=== PATIENT | male | born 1960 | race Caucasian/White ===

== ENCOUNTER 2017-06-03 20:09 | Inpatient (IN) | payer OTHER ==
[2017-06-03 20:29] VITALS: BMI 26.9
[2017-06-03] MEDS ORDERED: SODIUM CHLORIDE 1,000 ML IV STA (20:31)
[2017-06-03] MEDS ORDERED: ACETAMINOPHEN 1000 MG/100 ML VIAL (NON FORMULARY) IVPB ONE (20:38)
[2017-06-03] MEDS ORDERED: ACETAMINOPHEN INJECTION 100 ML IVPB ONE (20:51)
[2017-06-03] MEDS ORDERED: SODIUM CHLORIDE 0.9% 1000 ML INFUS.BAG IV ONE (20:56)
[2017-06-03 21:06] LABS: BASO % 0.1 % (0-2.0); EOS % 1.2 % (0-4.5); HEMATOCRIT 30.3 % (35.4-49); HEMOGLOBIN 11.1 GM/dL (11.7-16.9); LYMPH % 9.5 % (8-40); MCH 33.8 pg (25.7-33.7); MCHC 36.7 g/dl (32.0-35.9); MEAN CELL VOLUME 92.3 fl (80-96); MEAN PLT VOLUME 7.7 fl (7.5-11.1); MONO % 18.9 % (3.8-10.2); NEUT % 70.3 % (42.8-82.8); PLATELET COUNT 173 K/MM3 (134-434); RBC 3.28 M/mm3 (4.00-5.60); RDW 12.5 % (11.9-15.9); WHITE BLOOD COUNT 2.6 K/mm3 (4.0-10.0)
--- NOTE | 2017-06-03 21:06 | PDOC ---
Attending Attestation - Resident Resident Name: Ramsey Pruett - ED Attending Attestation I have performed the following: I have examined & evaluated the patient, The case was reviewed & discussed with the resident, I agree w/resident's findings & plan, Exceptions are as noted - HPI HPI: 06/03/17 23:30 Mr. 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 Pt s/p 5 rounds of chemo and also receiving XRT Pt tolerates chemo well, has had oral lesions for which he is treated with Roxicodone, Steroid swish and spit The patient states that he received his last dose of chemo on Monday and began developing fevers on which were intermittent and self resolving. He was seen by oncologist today, noted to have a low grade fever of 100.1 Given IV hydration and fever resolved before discharge He noted a fever prior to arrival in the ER Pt has had a cough but this has not changed in any way from prior Pt had had no nausea, vomiting or diarrhea No cellulitis Pt has sores in his mouth. - Physicial Exam PE: 06/03/17 23:54 GENERAL: The patient is in no acute distress. HEAD: Normal EYES: PERRLA, EOMI, sclera anicteric, conjunctiva clear. ENT: Ears normal, oral ulcerous lesions, s/p tongue resection NECK: Normal range of motion, supple LUNGS: Breath sounds equal, clear to auscultation bilaterally. No wheezes, and no crackles. HEART:Regular rate and rhythm, normal S1 and S2 without murmur, rub or gallop. ABDOMEN: Soft, nontender, normoactive bowel sounds. No guarding, no rebound. No masses palpable. EXTREMITIES: Normal range of motion . NEUROLOGICAL: Cranial nerves II through XII grossly intact. Normal speech. No focal neurological deficits. MUSCULOSKELETAL: Back non-tender to palpation, no CVA tenderness SKIN: Warm, Dry, normal turgor, no rashes 06/05/17 20:14 - Medical Decision Making 06/03/17 23:25 Laboratory Tests 07/02/15 07/02/15 07/02/15 02:50 03:20 03:20 WBC 13.3 H Hgb 14.1 Hct 42.0 Plt Count 228 Neutrophils % 72.8 PT with INR INR PTT (Actin FS) VBG pH POC VBG pCO2 POC VBG pO2 Mixed VBG HCO3 Sodium Potassium Chloride Carbon Dioxide Anion Gap BUN 12 Creatinine 0.8 Lactic Acid Troponin I Albumin Urine Ketones Negative Urine Blood Negative Urine Nitrite Negative Ur Leukocyte Esterase Negative Urine RBC <1 Urine WBC 1 06/03/17 06/03/17 06/03/17 20:40 20:40 20:40 WBC 2.6 L D Hgb 11.1 L D Hct 30.3 L D Plt Count 173 D Neutrophils % 70.3 PT with INR 13.10 H INR 1.16 H PTT (Actin FS) 24.4 L VBG pH POC VBG pCO2 POC VBG pO2 Mixed VBG HCO3 Sodium Potassium Chloride Carbon Dioxide Anion Gap BUN Cancelled Creatinine Cancelled Lactic Acid Troponin I Albumin Urine Ketones Urine Blood Urine Nitrite Ur Leukocyte Esterase Urine RBC Urine WBC 06/03/17 06/03/17 06/03/17 20:40 20:46 21:35 WBC Hgb Hct Plt Count Neutrophils % PT with INR INR PTT (Actin FS) VBG pH 7.46 H POC VBG pCO2 36.7 L POC VBG pO2 68.9 H Mixed VBG HCO3 26.0 H Sodium 134 L Potassium 4.4 Chloride 103 Carbon Dioxide 26 Anion Gap 5 L BUN 23 H D Creatinine 1.0 D Lactic Acid 2.1 H Troponin I < 0.02 Albumin 2.6 L D Urine Ketones Urine Blood Urine Nitrite Ur Leukocyte Esterase Urine RBC Urine WBC 06/04/17 00:01 Pt presents to the ER with Oral lesions, fevers, tachycardia/hypotension (which has improved with IV hydration) Pt CXR demonstrates no evidence of infiltrate No diarrhea or abdominal pain to suggest colitis Pt has severe oral lesions ? source of fever?? Will: continue IV hydration Morphine for pain (no roxicodone available) Empiric vanc and unasyn Will admit to [facility] This was reviewed with patient Pt would rather stay here Clinical Impression: fever s/p chemo and radiation, initial presentation ?? Mucositis/Esophagitis, initial presentation Discharge Disposition - Diagnosis Sepsis Qualifiers: Sepsis type: sepsis due to unspecified organism Qualified Code(s): A41.9 - Sepsis, unspecified organism - Discharge Dispostion Condition at time of disposition: Guarded - Referrals - Patient Instructions - Post Discharge Activity Critical Care Time/MDM Note Total Critical Care Time: 35 Critical Care Statement: The care of this patient involved high complexity decision making to prevent further life threatening deterioration of the patient 's condition and/or to evaluate & treat vital organ system(s) failure or risk of failure.
--- NOTE | 2017-06-03 21:09 | PDOC ---
History of Present Illness - General Chief Complaint: SIRS, Suspected/Possible Stated Complaint: FEVER Time Seen by Provider: 06/03/17 20:29 History Source: Patient Exam Limitations: No Limitations - History of Present Illness Initial Comments: 06/03/17 21:09 The patient is a 56M with a PMH of lung ca (s/p resection w/ LN and chemo - last chemo Monday) who presents to the ER with intermittent fever. The patient states that he received his last dose of chemo on Monday and began developing fevers on which were intermittent and self resolving. Today he had a low grade fever of 100.1 then it continued to increase throughout the day and was told by his heme/onc physicians at [facility] to get evaluated. The patient has no complaints other than sores in his mouth. He denies CP, SOB, chills, nausea, vomiting, rashes, diarrhea, constipation. Past History - Past Medical History Allergies/Adverse Reactions: Allergies Allergy/AdvReac Type Severity Reaction Status Date / Time No Known Allergies Allergy Verified 06/03/17 20:27 Home Medications: Ambulatory Orders Docusate Sodium [Colace] 100 mg PO DAILY 06/03/17 FENTANYL 25mcg PATCH [DURAGESIC 25mcg PATCH -] 1 patch TD DAILY 06/03/17 Gabapentin 300 mg PO TID 06/03/17 Guaifenesin [Mucinex] 600 mg PO DAILY 06/03/17 Oxycodone HCl 20 mg PO PRN 06/03/17 Ranitidine HCl [Zantac] 300 mg PO DAILY 06/03/17 Sennosides [Senna] 8.6 mg PO DAILY 06/03/17 COPD: No - Immunization History Td Vaccination: Yes TDAP Vaccination: No - Suicide/Smoking/Psychosocial Hx Smoking Status: No Smoking History: Unknown if ever smoked Have you smoked in the past 12 months: No Number of Cigarettes Smoked Daily: 0 Information on smoking cessation initiated: No Hx Alcohol Use: No Drug/Substance Use Hx: No Review of Systems - Review of Systems Able to Perform ROS?: Yes Comments:: 06/03/17 21:18 GENERAL/CONSTITUTIONAL: Positive for fever. No chills. No weakness. HEAD, EYES, EARS, NOSE AND THROAT: Positive for sores in mouth and on tongue. No change in vision. No ear pain or discharge. No sore throat. CARDIOVASCULAR: No chest pain, palpitations, or lightheadedness. RESPIRATORY: No cough, wheezing, shortness of breath, or hemoptysis. GASTROINTESTINAL: No nausea, vomiting, diarrhea, constipation, or abdominal pain. GENITOURINARY: No dysuria, frequency, hematuria, or change in urination. MUSCULOSKELETAL: No joint or muscle swelling or pain. No neck or back pain. SKIN: No rash or lesions. NEUROLOGIC: No headache, numbness, tingling, weakness, loss of consciousness, or change in strength/sensation. ENDOCRINE: No increased thirst. No abnormal weight change. HEMATOLOGIC/LYMPHATIC: No anemia, easy bleeding, or history of blood clots. ALLERGIC/IMMUNOLOGIC: No hives or skin allergy. Is the patient limited Syriac proficient: No *Physical Exam - Vital Signs Last Vital Signs Temp Pulse Resp BP Pulse Ox 102.8 F H 143 H 18 93/57 100 06/03/17 20:24 06/03/17 20:24 06/03/17 20:24 06/03/17 20:24 06/03/17 20:24 - Physical Exam Comments: 06/03/17 21:19 GENERAL: Well developed, well nourished. Awake and alert. No acute distress. Warm to touch. HEENT: Normocephalic, atraumatic. Hearing grossly normal. Moist mucous membranes. PERRLA, EOMI. No conjunctival pallor. Sclera are non-icteric. Multiple sore present throughout oral mucosa, erythematous. NECK: Supple. Full ROM. No JVD. CARDIOVASCULAR: Tachycardic with regular rhythm. No murmurs, rubs, or gallops. PULMONARY: No evidence of respiratory distress. Lungs clear to auscultation bilaterally. No wheezing, rales or rhonchi. ABDOMINAL: Soft. Non-tender. Non-distended. No rebound or guarding. No organomegaly. Normoactive bowel sounds. GENITOURINARY: No CVA tenderness bilaterally. MUSCULOSKELETAL: Normal range of motion at all joints. No bony deformities or tenderness. EXTREMITIES: No cyanosis. No clubbing. No edema. No calf tenderness. SKIN: Warm and dry. Normal capillary refill. No rashes. No jaundice. NEUROLOGICAL: Alert, awake, appropriate. Cranial nerves 2-12 intact. Normal speech. Gait is normal without ataxia. PSYCHIATRIC: Cooperative. Good eye contact. Appropriate mood and affect. Heart Score/ECG Review #1 General ECG Interpretation: Sinus Rhythm, Normal Rate, Normal Intervals, No acute ischemic changes Compared to previous ECG there are: No significant change 06/03/17 21:21 Sinus tachycardia Vent 134 ND 116 QRS 72 QTc 406 No ROBERT or depressions No evidence of acute ischemia ED Treatment Course - LABORATORY CBC & Chemistry Diagram: 06/03/17 20:40 06/03/17 21:35 - RADIOLOGY Radiology Studies Ordered: Category Date Time Status CHEST X-RAY PORTABLE* [RAD] Stat Radiology 06/03/17 20:31 Ordered Medical Decision Making - Medical Decision Making 06/03/17 21:24 The patient is a 56M with a PMH of tongue ca who presents with intermittent fevers after calling his heme/onc. Incoming vitals notable for tachycardia to 130's, fever, and borderline hypotensive. Sepsis protocol is being followed with resuscitative fluids being given. Pt looks comfortable but will be monitored closely. IV tylenol given for fever control. 06/03/17 22:06 WBC 2.6, neut % is 70.6. No bands. The patient is not neutropenic. Will call Dr. Palafox, pt's oncologist, to discuss previous blood counts. 06/03/17 22:24 I have spoken with [address] Olivares at [facility] who states that the pt's previous WBC 5.8 w/neut 4.7 on May 29 and to give abx only if we find a source of infection. Will continue to resuscitate and monitor closely. 06/03/17 22:42 ER # [id number] for transfer to [facility] if necessary. Pt's oncologist Dr. Roderick Palafox [phone] Pt's rad/onc Dr. Chiquita Hagen [phone] 06/04/17 00:19 Hospitalist paged for admission. 06/04/17 00:[address] Sim for admission under Dr. Dwyer. *DC/Admit/Observation/Transfer Diagnosis at time of Disposition: Sepsis Qualifiers: Sepsis type: sepsis due to unspecified organism Qualified Code(s): A41.9 - Sepsis, unspecified organism - Discharge Dispostion Condition at time of disposition: Guarded Admit: Yes - Referrals - Patient Instructions - Post Discharge Activity
[2017-06-03 21:10] LABS: VENOUS PC02 36.7 mmHg (38-52); VENOUS PH 7.46 (7.32-7.42); VENOUS PO2 68.9 mmHg (28-48)
[2017-06-03 21:22] LABS: INR 1.16 (0.82-1.09); PROTHROMBIN TIME (PATIENT) 13.1 SEC (9.98-11.88)
[2017-06-03 21:25] LABS: ACTIVATED PTT 24.4 SECONDS (26.9-34.4)
[2017-06-03] MEDS ORDERED: oxyCODONE HCL 5 MG TABLET PO ONE (22:25)
[2017-06-03 22:28] LABS: ALBUMIN 2.6 g/dl (3.4-5.0); ANION GAP 5 (8-16); BILIRUBIN,TOTAL 0.3 mg/dL (0.2-1.0); BLOOD UREA NITROGEN 23 mg/dL (7-18); CALCIUM 7.4 mg/dL (8.5-10.1); CHLORIDE 103 mmol/L (98-107); CO2 26 mmol/L (21-32); GLUCOSE,RANDOM 199 mg/dL (74-106); POTASSIUM 4.4 mmol/L (3.5-5.1); SGOT/AST 7 U/L (15-37); SGPT/ALT 15 U/L (12-78); SODIUM 134 mmol/L (136-145)
[2017-06-03 22:31] LABS: ALK PHOS 62 U/L (45-117)
[2017-06-03] MEDS ORDERED: morphine SULFATE 4 MG/ML VIAL ONE (22:45)
[2017-06-03] MEDS ORDERED: morphine CARPU-JECT 4 MG/1 ML DISP.SYRIN IVPUSH ONE (22:47)
[2017-06-04] MEDS ORDERED: AMPICILLIN NA/SULBACTAM NA 3 GM in SODIUM CHLORIDE 100 ML IVPB ONE (00:01)
[2017-06-04] MEDS ORDERED: VANCOMYCIN 1 GRAM (PRE-DOCKED) 1,000 MG/250 ML BAG IVPB ONE (00:10)
[2017-06-04] MEDS ORDERED: VANCOMYCIN 1,000 MG in DEXTROSE 5%-WATER - 250 ML IVPB SCH (00:15)
--- NOTE | 2017-06-04 00:24 | PN ---
Teaching Attending Note Name of Resident: Nell Sim ATTENDING PHYSICIAN STATEMENT I saw and evaluated the patient. I reviewed the resident's note and discussed the case with the resident. I agree with the resident's findings and plan as documented. SUBJECTIVE: 56 y/o Male with h/o tongue cancer s/p rsection with chemotherapy with cisplatin 5th round and radiation therapy. Presented to Ed complaining of fever and severe mouth pain. PAtient takes oxycodone at home without relief. OBJECTIVE: Gen: A&Ox3 in severe distress HEENT: Drooling, tongue swollen with thrush. Cervical lymphadenopathy on left and neck erythematous CVS: RRR, S1, S2 Lungs: CTA Abd: Soft, NT, BS+ Ext: Nl pulses CBCD WBC 2.6 K/mm3 (4.0-10.0) L D 06/03/17 20:40 RBC 3.28 M/mm3 (4.00-5.60) L D 06/03/17 20:40 Hgb 11.1 GM/dL (11.7-16.9) L D 06/03/17 20:40 Hct 30.3 % (35.4-49) L D 06/03/17 20:40 MCV 92.3 fl (80-96) 06/03/17 20:40 MCHC 36.7 g/dl (32.0-35.9) H 06/03/17 20:40 RDW 12.5 % (11.9-15.9) 06/03/17 20:40 Plt Count 173 K/MM3 (134-434) D 06/03/17 20:40 MPV 7.7 fl (7.5-11.1) D 06/03/17 20:40 CMP Sodium 134 mmol/L (136-145) L 06/03/17 21:35 Potassium 4.4 mmol/L (3.5-5.1) 06/03/17 21:35 Chloride 103 mmol/L (98-107) 06/03/17 21:35 Carbon Dioxide 26 mmol/L (21-32) 06/03/17 21:35 Anion Gap 5 (8-16) L 06/03/17 21:35 BUN 23 mg/dL (7-18) H D 06/03/17 21:35 Creatinine 1.0 mg/dL (0.7-1.3) D 06/03/17 21:35 Creat Clearance w eGFR > 60 (>60) 06/03/17 21:35 Random Glucose 199 mg/dL (74-106) H D 06/03/17 21:35 Calcium 7.4 mg/dL (8.5-10.1) L 06/03/17 21:35 Total Bilirubin 0.3 mg/dL (0.2-1.0) D 06/03/17 21:35 AST 7 U/L (15-37) L D 06/03/17 21:35 ALT 15 U/L (12-78) D 06/03/17 21:35 Alkaline Phosphatase 62 U/L (45-117) 06/03/17 21:35 Total Protein 6.0 g/dl (6.4-8.2) L 06/03/17 21:35 Albumin 2.6 g/dl (3.4-5.0) L D 06/03/17 21:35 CARDIAC ENZYMES Creatine Kinase 50 IU/L (39-308) 06/03/17 21:35 Troponin I < 0.02 ng/ml (0.00-0.05) 06/03/17 21:35 ASSESSMENT AND PLAN: Admitted for Sepsis without neutropenia although patient has low white count. Empiric abx started and IVF. Tylenol PRN for fever. Fentanyl 100mcg IVP prn for severe pain and continue fentanyl patch 50mcg q72h. Continue gabapentin and home medications. Oncology consult Patients last chemo treatment planned for [facility] at [facility]
--- NOTE | 2017-06-04 00:32 | HP ---
CHIEF COMPLAINT: "I have a fever" oncologist Dr. Roderick Palafox [phone] rad/onc Dr. Chiquita Hagen [phone] 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 He began developing low grade fevers on . His heme/onc physicians at [facility] recommended ER eval. He complain of oral sores and thrush, poor pain cntrol and as a result poor po intake. Last labs show WBC 5.8, neut 4.7 on May 29. He has not had neuropenia, fevers, infection and has not used abx during his CA treatment before. He denies chills, malaise, abd pain, n/v, diarrhea, dysuria, constipation hematuria, melena, hemaochezia, cough, sob, sick contacts. On admission patients cbc shows WBC 2.6, neut 70.6% No bands, not neutropenic. Patints oncologist Dr. Palafox recommended ppx abx reatment. ER course was notable for: (1)labs (2)ekg: sinus tach, cxr clear (3)sepsis protocol, IVF 30cc /kg, vanco +unasyn, pain control Recent Travel: [place] PAST MEDICAL HISTORY: as above, diverticulitis PAST SURGICAL HISTORY: as above Social History: lives with family Smoking: denies Alcohol: quit, past moderate use Drugs: denies Family History: brother lymphoma at 25 yo Allergies No Known Allergies Allergy (Verified 06/03/17 20:27) HOME MEDICATIONS: Home Medications Medication Instructions Recorded Docusate Sodium [Colace] 100 mg PO DAILY 06/03/17 FENTANYL 25mcg PATCH [DURAGESIC 1 patch TD DAILY 06/03/17 25mcg PATCH -] Gabapentin 300 mg PO TID 06/03/17 Guaifenesin [Mucinex] 600 mg PO DAILY 06/03/17 Oxycodone HCl 20 mg PO PRN 06/03/17 Ranitidine HCl [Zantac] 300 mg PO DAILY 06/03/17 Sennosides [Senna] 8.6 mg PO DAILY 06/03/17 REVIEW OF SYSTEMS CONSTITUTIONAL: Absent: chills, malaise HEENT: Absent: rhinorrhea, nasal congestion, ear pain, eye pain, visual changes CARDIOVASCULAR: Absent: chest pain, syncope, palpitations, irregular heart rate, lightheadedness , peripheral edema RESPIRATORY: Absent: cough, shortness of breath, dyspnea with exertion, orthopnea GASTROINTESTINAL: Absent: abdominal pain, abdominal distension, nausea, vomiting, diarrhea, constipation, melena, hematochezia GENITOURINARY: Absent: dysuria, hematuria, flank pain MUSCULOSKELETAL: Absent: back pain, neck pain SKIN: Absent: rash, itching, pallor HEMATOLOGIC/IMMUNOLOGIC: Absent: easy bleeding, easy bruising, frequent infections ENDOCRINE: Absent: heat intolerance, cold intolerance NEUROLOGIC: Absent: headache, focal weakness or paresthesias PSYCHIATRIC: Absent: anxiety, depression PHYSICAL EXAMINATION Vital Signs - 24 hr 06/03/17 06/03/17 20:24 22:10 Temperature 102.8 F H 99.4 F Pulse Rate 143 H Pulse Rate [ 110 H Left Radial] Respiratory 18 19 Rate Blood Pressure 93/57 Blood Pressure 102/67 [Right Arm] O2 Sat by Pulse 100 Oximetry (%) GENERAL: Awake, alert, and fully oriented, in no acute distress. HEAD: Normal with no signs of trauma. EYES: Pupils equal, round and reactive to light, extraocular movements intact, sclera anicteric, conjunctiva clear. No lid lag. EARS, NOSE, THROAT: tongue and oropharyn with multiple ulcersm white film, erythematous, tender, drooling. Moist mucous membranes. NECK: supple without lymphadenopathy, JVD, or masses. erythematous from radiation, some posterior scabs LUNGS: Breath sounds equal, clear to auscultation bilaterally. HEART: Regular rate and rhythm, normal S1 and S2 ABDOMEN: Soft, nontender, not distended, normoactive bowel sounds, no guarding, no rebound, no masses. MUSCULOSKELETAL: No CVA tenderness. UPPER EXTREMITIES: 2+ pulses, warm, well-perfused. No cyanosis. No clubbing. No peripheral edema. LOWER EXTREMITIES: 2+ pulses, warm, well-perfused. No calf tenderness. No peripheral edema. NEUROLOGICAL: Cranial nerves II-XII grossly intact. slurred speech. PSYCHIATRIC: Cooperative. Good eye contact. Appropriate mood and affect. Laboratory Results - last 24 hr 06/03/17 06/03/17 06/03/17 20:40 20:40 20:40 WBC 2.6 L D RBC 3.28 L D Hgb 11.1 L D Hct 30.3 L D MCV 92.3 MCH 33.8 H MCHC 36.7 H RDW 12.5 Plt Count 173 D MPV 7.7 D Neutrophils % 70.3 Lymphocytes % 9.5 Monocytes % 18.9 H Eosinophils % 1.2 D Basophils % 0.1 PT with INR 13.10 H INR 1.16 H PTT (Actin FS) 24.4 L VBG pH POC VBG pCO2 POC VBG pO2 Mixed VBG HCO3 Sodium Cancelled Potassium Cancelled Chloride Cancelled Carbon Dioxide Cancelled Anion Gap Cancelled BUN Cancelled Creatinine Cancelled Creat Clearance w eGFR Cancelled Random Glucose Cancelled Lactic Acid Calcium Cancelled Total Bilirubin Cancelled AST Cancelled ALT Cancelled Alkaline Phosphatase Cancelled Creatine Kinase Troponin I Total Protein Cancelled Albumin Cancelled 06/03/17 06/03/17 06/03/17 20:40 20:40 20:46 WBC RBC Hgb Hct MCV MCH MCHC RDW Plt Count MPV Neutrophils % Lymphocytes % Monocytes % Eosinophils % Basophils % PT with INR INR PTT (Actin FS) VBG pH 7.46 H POC VBG pCO2 36.7 L POC VBG pO2 68.9 H Mixed VBG HCO3 26.0 H Sodium Potassium Chloride Carbon Dioxide Anion Gap BUN Creatinine Creat Clearance w eGFR Random Glucose Lactic Acid 2.1 H Calcium Total Bilirubin AST ALT Alkaline Phosphatase Creatine Kinase Troponin I Cancelled Total Protein Albumin 06/03/17 06/03/17 21:35 23:00 WBC RBC Hgb Hct MCV MCH MCHC RDW Plt Count MPV Neutrophils % Lymphocytes % Monocytes % Eosinophils % Basophils % PT with INR INR PTT (Actin FS) VBG pH POC VBG pCO2 POC VBG pO2 Mixed VBG HCO3 Sodium 134 L Potassium 4.4 Chloride 103 Carbon Dioxide 26 Anion Gap 5 L BUN 23 H D Creatinine 1.0 D Creat Clearance w eGFR > 60 Random Glucose 199 H D Lactic Acid 1.2 Calcium 7.4 L Total Bilirubin 0.3 D AST 7 L D ALT 15 D Alkaline Phosphatase 62 Creatine Kinase 50 Troponin I < 0.02 Total Protein 6.0 L Albumin 2.6 L D ASSESSMENT/PLAN: This is a 56 yo M with 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 Sepsis in chemotherapy patient -not neutropenic but wbc count dropped since last checked. -possible source may be oropharynx -will initiate ppx abx with flouroquilone and beta lactam -was initially slightly hypotensive 90's systolic from baseline of 130; s/o 30cc /kg NS, cont ns @ 100cc/hn; this may be due to volume depletion, patient has restricted po and bun elevated -IV tylenol fever -Onc, ID consult Tongue squamous CA -pain control with fentanyl patch 25 x2 q 3 d -fentanyl iv push 100 qh -nystatin PO wash -self suction -chemo to be held mon if active infection is found FEN NS @ 100 slight hyponatremia full iquid diet, magic cup scd, ranitidine adm m/s Problem List - Problem (1) Fever Code(s): R50.9 - FEVER, UNSPECIFIED (2) Tongue cancer Code(s): C02.9 - MALIGNANT NEOPLASM OF TONGUE, UNSPECIFIED (3) Sepsis Code(s): A41.9 - SEPSIS, UNSPECIFIED ORGANISM Qualifiers: Sepsis type: sepsis due to unspecified organism Qualified Code(s): A41.9 - Sepsis, unspecified organism (4) Sigmoid diverticulitis Code(s): K57.32 - DVTRCLI OF LG INT W/O PERFORATION OR ABSCESS W/O BLEEDING Visit type - Emergency Visit Emergency Visit: Yes Care time: The patient presented to the Emergency Department on the above date and was hospitalized for further evaluation of their emergent condition. - New Patient This patient is new to me today: Yes Date on this admission: 06/04/17 - Critical Care Critical Care patient: No Hospitalist Screening - Colonoscopy Questionnaire Colonoscopy Questionnaire: Colonoscopy Questionnaire - Patient: 50 - 75 years old and never had a screening colonoscopy: Yes History of colon or rectal polyps, or CA: No History of IBD, Crohn's disease or UC: No History of abdominal radiation therapy as a child: No - Relative: 1 with colon or rectal CA, or polyps at age 60 or younger: No Colon or rectal CA diagnosed at age 45 or younger: No Multiple relatives with colon or rectal CA: No - Outcome: Screening Result: Positive Screen
[2017-06-04] MEDS ORDERED: oxyCODONE HCL 5 MG TABLET PO ONE (00:42)
[2017-06-04] MEDS ORDERED: MAG HYDROX/ALH/SMC/DPHA/LIDO 240 ML MOUTHWASH MM SCH ×2 (00:54→06:00)
[2017-06-04] MEDS ORDERED: oxyCODONE HCL 5 MG TABLET ONE (00:59)
[2017-06-04] MEDS ORDERED: ACETAMINOPHEN 1000 MG/100 ML VIAL (NON FORMULARY) IVPB PRN (01:19)
[2017-06-04] MEDS: SODIUM CHLORIDE 1,000 ML IV SCH ×2 (01:41→12:09)
[2017-06-04] MEDS: MAG HYDROX/ALH/SMC/DPHA/LIDO 240 ML MOUTHWASH MM SCH ×4 (01:41→17:03)
[2017-06-04] MEDS ORDERED: METOCLOPRAMIDE HCL INJECTION 10 MG/2 ML VIAL IVPUSH PRN (04:50)
[2017-06-04] MEDS: NYSTATIN 500,000 UNITS/5 ML SUSPENSION PO SCH ×3 (06:02→17:02)
[2017-06-04] MEDS: GABAPENTIN 300 MG CAPSULE (FP) PO SCH ×3 (06:02→21:37)
[2017-06-04 06:16] LABS: URINE APPEARANCE CLEAR; URINE BILIRUBIN NEGATIVE (<2.0 mg/dL); URINE BLOOD NEGATIVE (NEGATIVE); URINE COLOR YELLOW; URINE GLUCOSE (UA) 2+ (NEGATIVE); URINE KETONE NEGATIVE (NEGATIVE); URINE LEUK ESTERASE NEGATIVE (NEGATIVE); URINE NITRITE NEGATIVE (NEGATIVE); URINE PROTEIN NEGATIVE (NEGATIVE); URINE UROBILINOGEN NEGATIVE mg/dL (0.2-1.0)
[2017-06-04 07:36] LABS: BASO % 0.1 % (0-2.0); EOS % 0.9 % (0-4.5); HEMATOCRIT 26.8 % (35.4-49); HEMOGLOBIN 9.6 GM/dL (11.7-16.9); LYMPH % 4.3 % (8-40); MCH 33.6 pg (25.7-33.7); MCHC 35.9 g/dl (32.0-35.9); MEAN CELL VOLUME 93.7 fl (80-96); MEAN PLT VOLUME 7.6 fl (7.5-11.1); NEUT % 74.7 % (42.8-82.8); PLATELET COUNT 137 K/MM3 (134-434); RBC 2.86 M/mm3 (4.00-5.60); RDW 12.6 % (11.9-15.9); WHITE BLOOD COUNT 2.8 K/mm3 (4.0-10.0)
[2017-06-04 08:14] LABS: CHLORIDE 102 mmol/L (98-107); POTASSIUM 4.9 mmol/L (3.5-5.1); SODIUM 136 mmol/L (136-145)
[2017-06-04 08:21] LABS: ANION GAP 10 (8-16); BLOOD UREA NITROGEN 19 mg/dL (7-18); CALCIUM 7.8 mg/dL (8.5-10.1); CO2 24 mmol/L (21-32); CREATININE 0.8 mg/dL (0.7-1.3); GLUCOSE,RANDOM 211 mg/dL (74-106); MAGNESIUM 1.4 mg/dL (1.8-2.4); PHOSPHOROUS 2.3 mg/dL (2.5-4.9)
[2017-06-04] MEDS ORDERED: DOCUSATE SODIUM 100 MG CAPSULE (FP) PO SCH (10:00)
[2017-06-04] MEDS ORDERED: fentaNYL 25mcg/hr PATCH.TD72 TD SCH (10:00)
[2017-06-04] MEDS: RANITIDINE HCL 150 MG/10 ML UNIT-DOSE PO SCH (10:23)
[2017-06-04] MEDS: guaiFENesin 600 MG TABLET.ER (FP) PO SCH (10:23)
[2017-06-04] MEDS: SENNOSIDES 8.6MG TABLET (FP) PO SCH (10:23)
[2017-06-04] MEDS: SILVER SULFADIAZINE 1% TOP CREAM 50 GM JAR TP SCH (10:24)
[2017-06-04] MEDS ORDERED: oxyCODONE HCL 5 MG TABLET PO PRN (11:02)
[2017-06-04] MEDS ORDERED: MAGNESIUM SULF 50% (8.12 MEQ/2 ML-1 GM VIAL) IVPB ONE (11:12)
--- NOTE | 2017-06-04 11:12 | PN ---
Teaching Attending Note Name of Resident: Emilee Robles SUBJECTIVE: Patient seen and examined, mouth pain overall unchanged. C/o nausea after coming to hospital, attibutes to IV fentanyl. Denies any vomting, diarrhea, abdominal pain. , recent URI like illness, cough, sputum, dyspnea, headache, neck pain or urinary symptoms. Eager to resume his treatment. OBJECTIVE: Vital Signs Period Temp Pulse Resp BP Sys/Parkinson Pulse Ox Last 24 Hr 98.6 F-102.8 F 20-143 17-116 93-131/57-72 98-100 Intake & Output 06/01/17 06/02/17 06/03/17 06/04/17 23:59 23:59 23:59 23:59 Intake Total 300 Balance 300 Weight 193 lb 193 lb General: sitting in bed in no acute distress HEENT: oral thrush and superficial ulcers and erythema Neck: right sided neck erythema, soft supple Abdomen:soft, NT, ND, positive bowel sounds, no suprapubic or CVA tenderness Extremities: no edema Chest: CTAB, no rales or wheezing Home Medication List Medication Instructions Recorded Confirmed Type Docusate Sodium [Colace] 100 mg PO DAILY 06/03/17 06/03/17 History FENTANYL 25mcg PATCH [DURAGESIC 1 patch TD DAILY 06/03/17 06/03/17 History 25mcg PATCH -] Gabapentin 300 mg PO TID 06/03/17 06/03/17 History Guaifenesin [Mucinex] 600 mg PO DAILY 06/03/17 06/03/17 History Oxycodone HCl 20 mg PO PRN 06/03/17 06/03/17 History Ranitidine HCl [Zantac] 300 mg PO DAILY 06/03/17 06/03/17 History Sennosides [Senna] 8.6 mg PO DAILY 06/03/17 06/03/17 History Active Medications Generic Name Dose Route Start Last Admin Trade Name Freq PRN Reason Stop Dose Admin Acetaminophen 1,000 mg 06/04/17 01:19 Ofirmev Injection - IVPB Q6H PRN FEVER Docusate Sodium 100 mg 06/04/17 10:00 06/04/17 10:23 Colace - PO Not Given DAILY PRICE Fentanyl 1 patch 06/06/17 10:00 Duragesic 50mcg Patch - TD Q72H PRICE Gabapentin 300 mg 06/04/17 06:00 06/04/17 06:02 Neurontin - PO 300 mg TID PRICE Administration Guaifenesin 600 mg 06/04/17 10:00 06/04/17 10:23 Mucinex - PO 600 mg DAILY PRICE Administration Levofloxacin 750 mg in 150 mls @ 100 mls/hr 06/04/17 01:00 06/04/17 01:41 Levaquin 750 Mg Premixed Ivpb - IVPB 100 mls/hr DAILY@2200 PRICE Administration Ampicillin Sodium/Sulbactam 100 mls @ 200 mls/hr 06/04/17 12:00 Sodium 3 gm/ Sodium Chloride IVPB BID PRICE Sodium Chloride 1,000 mls @ 100 mls/hr 06/04/17 01:15 06/04/17 01:41 Normal Saline - IV 100 mls/hr ASDIR PRICE Administration Lidocaine/Aluminum/Magnesium/Simeth 5 ml 06/04/17 01:00 06/04/17 06:02 Magic Mouthwash *Sjr Formula* - MM 5 ml Q6HPO PRICE Administration Metoclopramide HCl 10 mg 06/04/17 04:50 06/04/17 05:02 Reglan Injection - IVPUSH 10 mg Q6H PRN Administration NAUSEA AND/OR VOMITING Nystatin 500,000 units 06/04/17 06:00 06/04/17 06:02 Nystatin Oral Suspension - PO 500,000 units Q6HPO PRICE Administration Oxycodone HCl 10 mg 06/04/17 11:02 Roxicodone - PO Q4H PRN PAIN LEVEL 7 - 10 Ranitidine HCl 300 mg 06/04/17 10:00 06/04/17 10:23 Zantac Oral Solution - PO 300 mg DAILY PRICE Administration Senna 1 tab 06/04/17 10:00 06/04/17 10:23 Senna - PO 1 tab DAILY PRICE Administration Silver Sulfadiazine 1 applic 06/04/17 10:00 06/04/17 10:24 Silvadene - TP 1 applic DAILY PRICE Administration Laboratory Results - last 24 hr 06/03/17 06/03/17 06/03/17 20:40 20:40 20:40 WBC 2.6 L D RBC 3.28 L D Hgb 11.1 L D Hct 30.3 L D MCV 92.3 MCH 33.8 H MCHC 36.7 H RDW 12.5 Plt Count 173 D MPV 7.7 D Neutrophils % 70.3 Lymphocytes % 9.5 Monocytes % 18.9 H Eosinophils % 1.2 D Basophils % 0.1 PT with INR 13.10 H INR 1.16 H PTT (Actin FS) 24.4 L VBG pH POC VBG pCO2 POC VBG pO2 Mixed VBG HCO3 Sodium Cancelled Potassium Cancelled Chloride Cancelled Carbon Dioxide Cancelled Anion Gap Cancelled BUN Cancelled Creatinine Cancelled Creat Clearance w eGFR Cancelled Random Glucose Cancelled Lactic Acid Calcium Cancelled Phosphorus Magnesium Total Bilirubin Cancelled AST Cancelled ALT Cancelled Alkaline Phosphatase Cancelled Creatine Kinase Troponin I Total Protein Cancelled Albumin Cancelled Urine Color Urine Appearance Urine pH Ur Specific [place] Urine Protein Urine Glucose (UA) Urine Ketones Urine Blood Urine Nitrite Urine Bilirubin Urine Urobilinogen Ur Leukocyte Esterase 06/03/17 06/03/17 06/03/17 20:40 20:40 20:46 WBC RBC Hgb Hct MCV MCH MCHC RDW Plt Count MPV Neutrophils % Lymphocytes % Monocytes % Eosinophils % Basophils % PT with INR INR PTT (Actin FS) VBG pH 7.46 H POC VBG pCO2 36.7 L POC VBG pO2 68.9 H Mixed VBG HCO3 26.0 H Sodium Potassium Chloride Carbon Dioxide Anion Gap BUN Creatinine Creat Clearance w eGFR Random Glucose Lactic Acid 2.1 H Calcium Phosphorus Magnesium Total Bilirubin AST ALT Alkaline Phosphatase Creatine Kinase Troponin I Cancelled Total Protein Albumin Urine Color Urine Appearance Urine pH Ur Specific [place] Urine Protein Urine Glucose (UA) Urine Ketones Urine Blood Urine Nitrite Urine Bilirubin Urine Urobilinogen Ur Leukocyte Esterase 06/03/17 06/03/17 06/04/17 21:35 23:00 04:50 WBC RBC Hgb Hct MCV MCH MCHC RDW Plt Count MPV Neutrophils % Lymphocytes % Monocytes % Eosinophils % Basophils % PT with INR INR PTT (Actin FS) VBG pH POC VBG pCO2 POC VBG pO2 Mixed VBG HCO3 Sodium 134 L Potassium 4.4 Chloride 103 Carbon Dioxide 26 Anion Gap 5 L BUN 23 H D Creatinine 1.0 D Creat Clearance w eGFR > 60 Random Glucose 199 H D Lactic Acid 1.2 Calcium 7.4 L Phosphorus Magnesium Total Bilirubin 0.3 D AST 7 L D ALT 15 D Alkaline Phosphatase 62 Creatine Kinase 50 Troponin I < 0.02 Total Protein 6.0 L Albumin 2.6 L D Urine Color Yellow Urine Appearance Clear Urine pH 6.0 Ur Specific [place] 1.026 Urine Protein Negative Urine Glucose (UA) 2+ H Urine Ketones Negative Urine Blood Negative Urine Nitrite Negative Urine Bilirubin Negative Urine Urobilinogen Negative Ur Leukocyte Esterase Negative 06/04/17 06/04/17 06:30 06:30 WBC 2.8 L RBC 2.86 L Hgb 9.6 L D Hct 26.8 L MCV 93.7 MCH 33.6 MCHC 35.9 RDW 12.6 Plt Count 137 D MPV 7.6 Neutrophils % 74.7 Lymphocytes % 4.3 L D Monocytes % 20.0 H Eosinophils % 0.9 Basophils % 0.1 PT with INR INR PTT (Actin FS) VBG pH POC VBG pCO2 POC VBG pO2 Mixed VBG HCO3 Sodium 136 Potassium 4.9 Chloride 102 Carbon Dioxide 24 Anion Gap 10 BUN 19 H Creatinine 0.8 Creat Clearance w eGFR Random Glucose 211 H Lactic Acid Calcium 7.8 L Phosphorus 2.3 L Magnesium 1.4 L Total Bilirubin AST ALT Alkaline Phosphatase Creatine Kinase Troponin I Total Protein Albumin Urine Color Urine Appearance Urine pH Ur Specific [place] Urine Protein Urine Glucose (UA) Urine Ketones Urine Blood Urine Nitrite Urine Bilirubin Urine Urobilinogen Ur Leukocyte Esterase ASSESSMENT AND PLAN: 56 yom with 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 -Fevers, ?etiology, oral cavity, no other focal s/s concerning for infection. -Leucopenia, improved -Anemia, suspect acute on chronic from recent surgery/chemotherapy and aggressive hydration inhouse. -Severe hypomagnesemia -Hpyophosphatemia -Squamous cell tongue ca s/p surgery, now on chemoradiation Plan: Follow up blood cultures. ?Oral source. On unsayn/levaquin (?), follow up with ID. Continue nystatin. ?Diflucan. No other focal s/s concerning for infectious process. WBC improved. Trend h/h. Replete Mg/Phos. Resume home oxycodone. Continue fentanyl patch/gabapentin. Oncology consulted. Addressed to continue oral hygeine per prior, advised to bring in bicarb for oral rinses. DVTPPx with lovenox in 24 hours if non ambulatory and h/h stable. Dispo pending above. patient eager to resume his radiation and chemotherapy this week. Monitor today. Discuss with oncologist in [place] tomorrow to co-ordinate transfer/ further plan based on fevers and clinical course. Plan discussed with patient in detail, all questions answered.
[2017-06-04] MEDS ORDERED: MAGNESIUM SULFATE IN WATER 2 GM/50 ML IVPB IVPB ONE (11:50)
[2017-06-04] MEDS ORDERED: SODIUM PHOSPHATE - 30 MM in SODIUM CHLORIDE 500 ML IVPB ONE (12:00)
[2017-06-04] MEDS ORDERED: AMPICILLIN NA/SULBACTAM NA 3 GM in SODIUM CHLORIDE 100 ML IVPB SCH (12:00)
[2017-06-04] MEDS: INSULIN SLIDING SCALE (NOVOLOG) 1 VIAL SQ SCH ×2 (12:13→17:02)
[2017-06-04] MEDS: DOCUSATE NA 100 MG/10 ML UNIT-DOSE CUPS PO SCH ×2 (14:20→14:55)
--- NOTE | 2017-06-04 16:10 | CONSULT ---
Consult Consult Specialty:: Oncology - History of Present Illness History of Present Illness: 56 year old man with tongue cancer s/p tongue resection February 24 with lymph node dissection, he had a second tongue resection in Apr 03 with 2 lymph nodes he is on concurrent chemo=RT (Cis/RT) s/p 5weekly Cis One more Cis and one week more of RT. Thus far had no admission, had been receiving IVF at infusion suite 3x week, pain control, nystatin, mucositis cock-tail follows at [facility]. - History Source History Provided By: Patient, Family Member - Alcohol/Substance Use Hx Alcohol Use: No - Smoking History Smoking history: Unknown if ever smoked Have you smoked in the past 12 months: No Aproximately how many cigarettes per day: 0 Home Medications - Allergies Allergies/Adverse Reactions: Allergies Allergy/AdvReac Type Severity Reaction Status Date / Time No Known Allergies Allergy Verified 06/03/17 20:27 - Home Medications Home Medications: Ambulatory Orders Docusate Sodium [Colace] 100 mg PO DAILY 06/03/17 Gabapentin 300 mg PO TID 06/03/17 Guaifenesin [Mucinex] 600 mg PO DAILY 06/03/17 Ranitidine HCl [Zantac] 300 mg PO DAILY 06/03/17 Sennosides [Senna] 8.6 mg PO DAILY 06/03/17 FENTANYL 25mcg PATCH [DURAGESIC 25mcg PATCH -] 2 each TD Q72H 06/04/17 Oxycodone HCl 10 mg PO Q4H 06/04/17 Review of Systems - Review of Systems HENT: reports: Difficult Swallowing, Throat Pain Neck: reports: No Symptoms Neurological: reports: No Symptoms Physical Exam Vital Signs: Vital Signs Temperature 99.2 F 06/04/17 14:25 Pulse Rate 97 H 06/04/17 14:25 Respiratory Rate 17 06/04/17 14:25 Blood Pressure 120/70 06/04/17 14:25 O2 Sat by Pulse Oximetry (%) 98 06/04/17 09:00 Constitutional: Yes: No Distress, Calm Eyes: Yes: Conjunctiva Clear HENT: Yes: Atraumatic, Normocephalic, Thrush, Other (diffuse , on the tongue, on the buccal mucosa) Neck: Yes: Supple, Other (rt changes present). No: Lymphadenopathy Gastrointestinal: Yes: Normal Bowel Sounds, Soft Extremities: Yes: WNL Labs: CBC, BMP 06/04/17 06:30 06/04/17 06:30 Assessment/Plan monitor CBC adequate neutrophils now assess as needed for granix. Oral Thrush: ID to see ?source of fever ?IV fluc on concurrent chemo RT for his h/n cancer monitor Mag s/p replacement today daily mag IVF d/w pt and family to f.u with their oncologist.
[2017-06-04] MEDS ORDERED: FLUCONAZOLE 100 MG/NS 50 ML IVPB ONE (17:45)
[2017-06-04] MEDS ORDERED: PT OWN MED DRAWER 7, Y5N ONE (17:52)
--- NOTE | 2017-06-04 17:54 | PN ---
Progress Note (short form) - Note Progress Note: ID consult dictated 56 year old man with tongue cancer s/p tongue resection February 24 with lymph node dissection, he had a second tongue resection in Apr 03 with 2 lymph nodes he is s/p chemo weekly on Monday and RT Mon- Monday this Monday is his last chemo he has one more week of RT he had a lowgrade fever on Monday he had fever again yesterday at infusion (he goes 3x a week for hydration) then he had fever to 102 at home and was sent to the ED no chills no cough no diarrhea has been on fentanyl patch for 2 weeks now no discomfort with swallowing no chest discomfort with swallowing not neutropenic fever- mucositis thrush continue unasyn start diflucan continue magic mouth wash influenza screen s/p chemo-Monday ongoing RT f/u cultures Problem List - Problems (1) Fever Code(s): R50.9 - FEVER, UNSPECIFIED (2) Thrush Code(s): B37.0 - CANDIDAL STOMATITIS (3) Mucositis Code(s): K12.30 - ORAL MUCOSITIS (ULCERATIVE), UNSPECIFIED (4) Tongue cancer Code(s): C02.9 - MALIGNANT NEOPLASM OF TONGUE, UNSPECIFIED
--- NOTE | 2017-06-04 18:39 | CONS ---
DATE OF CONSULTATION: 06/04/2017 REQUESTED BY: Hospitalist service. This is a 56-year-old man with a history of tongue cancer. He otherwise is quite healthy. He is status post original surgery February 24, with a 2nd surgery April 03. The 1st surgery was a tongue resection with 40 lymph nodes removed. The 2nd surgery on April 03 was triggered by a positive PET scan. He had a 2nd tongue resection and 2 lymph nodes removed. He has been now receiving chemotherapy for the last planned 6 courses, once weekly, on Mondays. He has finished 5. His last chemotherapy was on Monday. Prior to the chemotherapy, he had had a low-grade fever, which resolved after the chemotherapy. On , he starting having some low-grade fevers. He goes 3 times a week for infusion for hydration. He went for hydration on Monday, was noted to be have a low-grade temperature of 100.3 there. The temperature became more elevated to 102 and he was told by his oncologist to get evaluated. He has no cough. He denies chills. He has not had any nausea or vomiting. He has no diarrhea or constipation. He has been able to tolerate solids. He is spitting up a lot of saliva, which he says has been ongoing through this entire experience. He also gets radiation Monday through Monday and has 1 more week of radiation to completely. He has no known drug allergies. His medications include Colace, fentanyl patch, gabapentin, Mucinex, oxycodone, ranitidine, and senna. His past medical history is notable for the tongue cancer and the surgery related to it. He denies diabetes, coronary artery disease, or prior hypertension. Family history is noncontributory. SOCIAL HISTORY: He is a facilities maintenance supervisor in the city. He is . He currently has not been working for a while since his diagnosis. There is no history of any recent travel. He is currently not smoking. His review of systems is notable for the fever and the fact that he needs to spit up frequently, otherwise he actually feels well. He has no difficulty/pain on swallowing. He has no chest discomfort when he swallows. PHYSICAL EXAMINATION: Vital Signs: His temperature on admission was 102.8, pulse was 143. Today is temperature is 99.2 with a pulse of 97, blood pressure 120/17, respiratory rate of 17. HEENT: He is normocephalic. His eyes are anicteric. Neck: Supple. Lungs: Clear to auscultation. Heart: Regular rate and rhythm. Abdomen: Soft, nontender. Extremities: Without edema. Mouth: He has thrush on his palate. He has this mucoid discharge on his tongue. He has thrush extending surrounding his teeth. Neck: He has radiation changes on his neck at the site of the radiation sites, which the and patient report are unchanged. Labs are notable for a white count of 2.6 on admission, 2.8 today, with 74% neutrophils. His ANC is 2000. Hemoglobin is 9.6, platelets are 137. His BUN is 19 and creatinine 0.8. Urinalysis is negative for white cells, 2+ glucose. Blood cultures are pending. Chest x-ray is negative. In summary, this is an otherwise healthy 56-year-old man who is in the process of chemotherapy and radiation treatment for tongue cancer with positive lymph nodes, who presents with fever. He is not neutropenic. Notable findings on exam are mucositis and thrush. I would suggest we continue his Unasyn, stop the Levaquin, start Diflucan. Would continue magic mouthwash since he says it helps him. Continue the nystatin swish and swallow, which he is tolerating as well. Would screen him for influenza, given that he is status post chemo, which he is scheduled to get on Monday and has ongoing radiation therapy. Will plan to follow up cultures. Case was discussed at length with the hospitalist. JOHN CHOUDHARY M.D. [id number]
[2017-06-04] MEDS: AMPICILLIN NA/SULBACTAM NA 3 GM in SODIUM CHLORIDE 100 ML IVPB SCH (21:36)
[2017-06-05] MEDS: MAG HYDROX/ALH/SMC/DPHA/LIDO 240 ML MOUTHWASH MM SCH ×5 (00:16→21:00)
[2017-06-05] MEDS: NYSTATIN 500,000 UNITS/5 ML SUSPENSION PO SCH ×4 (00:17→17:24)
[2017-06-05] MEDS: AMPICILLIN NA/SULBACTAM NA 3 GM in SODIUM CHLORIDE 100 ML IVPB SCH ×4 (03:33→20:59)
[2017-06-05] MEDS: SODIUM CHLORIDE 1,000 ML IV SCH ×2 (03:34→13:17)
[2017-06-05] MEDS: INSULIN SLIDING SCALE (NOVOLOG) 1 VIAL SQ SCH ×3 (06:20→17:23)
[2017-06-05] MEDS: GABAPENTIN 300 MG CAPSULE (FP) PO SCH ×3 (06:20→21:00)
[2017-06-05] MEDS ORDERED: INSULIN (NOVOLOG) ASPART 100 UNITS/ML 10ML VIAL ONE (06:31)
[2017-06-05 06:46] LABS: BASO % 0.1 % (0-2.0); EOS % 1.9 % (0-4.5); HEMATOCRIT 26.1 % (35.4-49); HEMOGLOBIN 9.3 GM/dL (11.7-16.9); LYMPH % 5.6 % (8-40); MCH 33.4 pg (25.7-33.7); MCHC 35.7 g/dl (32.0-35.9); MEAN CELL VOLUME 93.4 fl (80-96); MEAN PLT VOLUME 7.3 fl (7.5-11.1); MONO % 13.6 % (3.8-10.2); NEUT % 78.8 % (42.8-82.8); PLATELET COUNT 138 K/MM3 (134-434); RBC 2.79 M/mm3 (4.00-5.60); RDW 12.5 % (11.9-15.9); WHITE BLOOD COUNT 2.9 K/mm3 (4.0-10.0)
[2017-06-05 07:11] LABS: ALBUMIN 2.5 g/dl (3.4-5.0); ANION GAP 10 (8-16); BLOOD UREA NITROGEN 9 mg/dL (7-18); CALCIUM 7.8 mg/dL (8.5-10.1); CHLORIDE 102 mmol/L (98-107); CO2 24 mmol/L (21-32); MAGNESIUM 1.6 mg/dL (1.8-2.4); POTASSIUM 3.7 mmol/L (3.5-5.1); SODIUM 136 mmol/L (136-145)
[2017-06-05 07:16] LABS: ALK PHOS 55 U/L (45-117); BILIRUBIN,TOTAL 0.6 mg/dL (0.2-1.0); CREATININE 0.6 mg/dL (0.7-1.3); GLUCOSE,RANDOM 173 mg/dL (74-106); PHOSPHOROUS 2.3 mg/dL (2.5-4.9); SGOT/AST 11 U/L (15-37); SGPT/ALT 13 U/L (12-78); TOT PROT 5.8 g/dl (6.4-8.2)
[2017-06-05] MEDS ORDERED: MAGNESIUM SULF 50% (8.12 MEQ/2 ML-1 GM VIAL) IVPB ONE (07:58)
--- NOTE | 2017-06-05 08:28 | PN ---
Teaching Attending Note Name of Resident: Sydney Elaine ATTENDING PHYSICIAN STATEMENT I saw and evaluated the patient. I reviewed the resident's note and discussed the case with the resident. I agree with the resident's findings and plan as documented with exceptions below. SUBJECTIVE: Patient seen and examined. mouth pain better, no new fevers/chills. No new complaints. OBJECTIVE: Vital Signs Period Temp Pulse Resp BP Sys/Parkinson Pulse Ox Last 24 Hr 98.6 F-99.4 F 97-105 17-18 117-144/68-83 98-98 Intake & Output 06/02/17 06/03/17 06/04/17 06/05/17 23:59 23:59 23:59 23:59 Intake Total 1850 1200 Balance 1850 1200 Weight 193 lb 193 lb 187 lb 6.4 oz General: sitting in bed in no acute distress HEENT: oral thrush with crusting, overall unchanged exam Chest: CTAB, no rales or wheezing Abdomen: soft, NT throughout, ND, positive bowel sounds Extremities: no edema Home Medication List Medication Instructions Recorded Confirmed Type Docusate Sodium [Colace] 100 mg PO DAILY 06/03/17 06/03/17 History Gabapentin 300 mg PO TID 06/03/17 06/03/17 History Guaifenesin [Mucinex] 600 mg PO DAILY 06/03/17 06/03/17 History Ranitidine HCl [Zantac] 300 mg PO DAILY 06/03/17 06/03/17 History Sennosides [Senna] 8.6 mg PO DAILY 06/03/17 06/03/17 History FENTANYL 25mcg PATCH [DURAGESIC 2 each TD Q72H 06/04/17 06/04/17 History 25mcg PATCH -] Oxycodone HCl 10 mg PO Q4H 06/04/17 06/04/17 History Active Medications Generic Name Dose Route Start Last Admin Trade Name Freq PRN Reason Stop Dose Admin Acetaminophen 1,000 mg 06/04/17 01:19 06/04/17 20:20 Ofirmev Injection - IVPB 1,000 mg Q6H PRN Administration FEVER Docusate Sodium 100 mg 06/04/17 13:45 06/04/17 14:55 Colace Liquid - PO 100 mg DAILY PRICE Administration Fentanyl 1 patch 06/06/17 10:00 Duragesic 50mcg Patch - TD Q72H PRICE Gabapentin 300 mg 06/04/17 06:00 06/05/17 06:20 Neurontin - PO 300 mg TID PRICE Administration Guaifenesin 600 mg 06/04/17 10:00 06/04/17 10:23 Mucinex - PO 600 mg DAILY PRICE Administration Sodium Chloride 1,000 mls @ 100 mls/hr 06/04/17 01:15 06/05/17 03:34 Normal Saline - IV Not Given ASDIR PRICE Ampicillin Sodium/Sulbactam 100 mls @ 200 mls/hr 06/04/17 17:45 06/05/17 03: 33 Sodium 3 gm/ Sodium Chloride IVPB 200 mls/hr Q6H-IV PRICE Administration Insulin Aspart 1 vial 06/04/17 16:30 06/05/17 06:20 Novolog Vial Sliding Scale - SQ 2 units TIDAC PRICE Administration Protocol Lidocaine/Aluminum/Magnesium/Simeth 5 ml 06/04/17 01:00 06/05/17 06:20 Magic Mouthwash *Sjr Formula* - MM 5 ml Q6HPO PRICE Administration Magnesium Sulfate 2 gm 06/05/17 07:58 Magnesium Sulfate IVPB 06/05/17 07:59 ONCE ONE Metoclopramide HCl 10 mg 06/04/17 04:50 06/04/17 05:02 Reglan Injection - IVPUSH 10 mg Q6H PRN Administration NAUSEA AND/OR VOMITING Nystatin 500,000 units 06/04/17 06:00 06/05/17 06:20 Nystatin Oral Suspension - PO 500,000 units Q6HPO PRICE Administration Potassium Phos/Sodium Phos 2 packet 06/05/17 07:58 Phos-Nak Packet - PO 06/05/17 07:59 ONCE ONE Ranitidine HCl 300 mg 06/04/17 10:00 06/04/17 10:23 Zantac Oral Solution - PO 300 mg DAILY PRICE Administration Senna 1 tab 06/04/17 10:00 06/04/17 10:23 Senna - PO 1 tab DAILY PRICE Administration Silver Sulfadiazine 1 applic 06/04/17 10:00 06/04/17 10:24 Silvadene - TP 1 applic DAILY PRICE Administration Laboratory Results - last 24 hr 04/15/18 04/15/18 04/15/18 12:12 17:00 21:32 WBC RBC Hgb Hct MCV MCH MCHC RDW Plt Count MPV Neutrophils % Lymphocytes % Monocytes % Eosinophils % Basophils % Sodium Potassium Chloride Carbon Dioxide Anion Gap BUN Creatinine Creat Clearance w eGFR POC Glucometer 229 188 162 Random Glucose Calcium Phosphorus Magnesium Total Bilirubin AST ALT Alkaline Phosphatase Total Protein Albumin 06/05/17 06/05/17 06/05/17 06:16 06:30 06:30 WBC 2.9 L RBC 2.79 L Hgb 9.3 L Hct 26.1 L MCV 93.4 MCH 33.4 MCHC 35.7 RDW 12.5 Plt Count 138 MPV 7.3 L Neutrophils % 78.8 Lymphocytes % 5.6 L D Monocytes % 13.6 H Eosinophils % 1.9 D Basophils % 0.1 Sodium 136 Potassium 3.7 D Chloride 102 Carbon Dioxide 24 Anion Gap 10 BUN 9 D Creatinine 0.6 L D Creat Clearance w eGFR > 60 POC Glucometer 191 Random Glucose 173 H Calcium 7.8 L Phosphorus 2.3 L Magnesium 1.6 L Total Bilirubin 0.6 D AST 11 L D ALT 13 Alkaline Phosphatase 55 Total Protein 5.8 L Albumin 2.5 L Microbiology 06/03/17 20:46 Blood Culture - Preliminary Blood - Peripheral Venous NO GROWTH OBTAINED AFTER 24 HOURS, INCUBATION TO CONTINUE FOR 4 DAYS. 06/03/17 20:46 Blood Culture - Preliminary Blood - Peripheral Venous NO GROWTH OBTAINED AFTER 24 HOURS, INCUBATION TO CONTINUE FOR 4 DAYS. 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 -Fevers, Oral thrush vs secondary bacterial infection of radiation mucositis, no other focal s/s of infection -Leucopenia, improved -Anemia, suspect acute on chronic from recent surgery/chemotherapy and aggressive hydration inhouse. -Severe hypomagnesemia -Hpyophosphatemia -Squamous cell tongue ca s/p surgery, now on chemoradiation Plan: Blood cultures neg so far. ID input noted. Diflucan day 2, unasyn day 2. patient reports on nystatin and diflucan for last 3-4 weeks. No other focal s/s concerning for infectious process. CBC overall stable. Oncology input noted. Message left with Dr. Palafox's office, will discuss further plan of care. Discussed with Dr. Mendiola, recommend inpatient monitoring over 24 hours and d /c on augmentin/diflucan tomorrow if no concerns, unless oncologist feels otherwise. Awaiting call back from Dr. Palafox's office. Replete Mg/Phos. Not using home oxycodone. Continue fentanyl patch/gabapentin. Continue oral hygeine and magic mouthwash. DVTPPx with lovenox in 24 hours if non ambulatory and h/h stable. Dispo pending above. patient eager to resume his radiation and chemotherapy this week. Monitor today. Discuss with oncologist in [place] and dispo planning in 24 hours based on fevers and clinical course. Plan discussed with patient in detail, all questions answered.
[2017-06-05] MEDS ORDERED: NAPH,MB-DB/K PH,MBDB POWDER PACKET PO ONE (09:00)
[2017-06-05] MEDS: guaiFENesin 600 MG TABLET.ER (FP) PO SCH (09:02)
[2017-06-05] MEDS: SENNOSIDES 8.6MG TABLET (FP) PO SCH (09:02)
[2017-06-05] MEDS: DOCUSATE NA 100 MG/10 ML UNIT-DOSE CUPS PO SCH (09:02)
[2017-06-05] MEDS: RANITIDINE HCL 150 MG/10 ML UNIT-DOSE PO SCH (09:03)
[2017-06-05] MEDS: SILVER SULFADIAZINE 1% TOP CREAM 50 GM JAR TP SCH (09:03)
[2017-06-05] MEDS ORDERED: MAGNESIUM SULFATE IN WATER 2 GM/50 ML IVPB IVPB ONE (09:15)
--- NOTE | 2017-06-05 12:29 | EKG ---
Test Reason : Blood Pressure : / mmHG Vent. Rate : 134 BPM Atrial Rate : 134 BPM P-R Int : 116 ms QRS Dur : 072 ms QT Int : 272 ms P-R-T Axes : 041 033 000 degrees QTc Int : 406 ms POOR DATA QUALITY, INTERPRETATION MAY BE ADVERSELY AFFECTED SINUS TACHYCARDIA WITH FREQUENT PREMATURE VENTRICULAR COMPLEXES T WAVE ABNORMALITY, CONSIDER INFERIOR ISCHEMIA ABNORMAL ECG NO PREVIOUS ECGS AVAILABLE Confirmed by CAPRICE GREENWOOD MD ([id number]) on 06/05/2017 12:28:51 PM Referred By: Confirmed By:CAPRICE GREENWOOD MD
--- NOTE | 2017-06-05 12:57 | PN ---
Progress Note (short form) - Note Progress Note: feels better temps improved Vital Signs Period Temp Pulse Resp BP Sys/Parkinson Pulse Ox Last 24 Hr 99 F-99.4 F 97-105 17-18 120-144/68-83 97-98 cor-rrr llungs clear abd soft,nt ext no edema mouth unchanged CBC, BMP 06/05/17 06:30 06/05/17 06:30 Microbiology 06/04/17 04:50 Urine - Urine Clean Catch Urine Culture - Final NO GROWTH OBTAINED 06/03/17 20:46 Blood - Peripheral Venous Blood Culture - Preliminary NO GROWTH OBTAINED AFTER 24 HOURS, INCUBATION TO CONTINUE FOR 4 DAYS. 06/03/17 20:46 Blood - Peripheral Venous Blood Culture - Preliminary NO GROWTH OBTAINED AFTER 24 HOURS, INCUBATION TO CONTINUE FOR 4 DAYS. 06/04/17 18:10 Nasopharyngeal Swab Influenza Types A,B Antigen (ALLEN) - Final 06/04/17 18:10 Nasopharyngeal Swab - Final a/p I fever- mucositis-no oral lesions to suggest HSV thrush continue unasyn start diflucan continue magic mouth wash influenza screen negative continue unasyn and diflucan with plans to switch to po augmentin (suspension) and po diflucan in am temps trending down s/p chemo-Monday ongoing RT d/w hospitalist service Problem List - Problems (1) Fever Code(s): R50.9 - FEVER, UNSPECIFIED (2) Thrush Code(s): B37.0 - CANDIDAL STOMATITIS (3) Mucositis Code(s): K12.30 - ORAL MUCOSITIS (ULCERATIVE), UNSPECIFIED (4) Tongue cancer Code(s): C02.9 - MALIGNANT NEOPLASM OF TONGUE, UNSPECIFIED
--- NOTE | 2017-06-05 13:20 | MSN ---
Progress Note (SOAP) - Subjective Chief Complaint: fever History of Present Illness: Sánchez Mayorga is a 56 year old male with a PMHx of squamous cell carcinoma of the tongue and diverticulitis who was admitted after having several episodes of fevers. Patient is s/p resection of the tongue for the carcinoma in February as well as neck dissection of lymph nodes. Patient received a PET scan and was found with additional lymph nodes and underwent a second dissection in March at which time he was also started on chemotherapy with cisplatin and radiation. At the time of admission, patient had underwent 5/6 chemotherapy regimens and was in his last week of radiation. Patient had several low grade fevers after chemotherapy the previous week and complained of sores in his mouth, pain, and poor appetite. Patient was found with a fever of 102.8 in the ED. Additionally, ED CBC showed a WBC of 2.6, 70.6 % neutrophils, no bands. Oncologist, Dr. Palafox recommended antibiotic treatment. Patient was started on sepsis protocol with fluids and Unasyn/ Levaquin. ID was consulted and recommended changing to Unasyn and Diflucan. Patient was continued on nystatin and Magic Mouth Wash. Patient on fentanyl patch for pain control. Patient was seen and examined at the bedside. Patient stated that he had some mild pain in his mouth and endorsed a cough which brought up saliva. Patient stated he wanted to return home to continue his cancer treatment. Patient denied chest pain, shortness of breath, abd pain, dysuria, frequency, urgency, n /v/c/d, headaches, blurry vision, double vision, myalgias. - Current Medications Current Medications: Active Medications Acetaminophen (Ofirmev Injection -) 1,000 mg IVPB Q6H PRN PRN Reason: FEVER Last Admin: 06/04/17 20:20 Dose: 1,000 mg Docusate Sodium (Colace Liquid -) 100 mg PO DAILY [facility] Last Admin: 06/05/17 09:02 Dose: Not Given Fentanyl (Duragesic 50mcg Patch -) 1 patch TD Q72H [facility] Gabapentin (Neurontin -) 300 mg PO TID [facility] Last Admin: 06/05/17 06:20 Dose: 300 mg Guaifenesin (Mucinex -) 600 mg PO DAILY [facility] Last Admin: 06/05/17 09:02 Dose: 600 mg Sodium Chloride (Normal Saline -) 1,000 mls @ 100 mls/hr IV ASDIR [facility] Last Admin: 06/05/17 03:34 Dose: Not Given Ampicillin Sodium/Sulbactam (Sodium 3 gm/ Sodium Chloride) 100 mls @ 200 mls/ hr IVPB Q6H-IV [facility] Last Admin: 06/05/17 09:01 Dose: 200 mls/hr Fluconazole (Diflucan 100 Mg/Ns Premixed Ivpb -) 50 mls @ 50 mls/hr IVPB DAILY [facility] Insulin Aspart (Novolog Vial Sliding Scale -) 1 vial SQ TIDAC [facility] PRN Reason: Protocol Last Admin: 06/05/17 11:39 Dose: 1 units Lidocaine/Aluminum/Magnesium/Simeth (Magic Mouthwash *Sjr Formula* -) 5 ml MM Q6HPO [facility] Last Admin: 06/05/17 11:40 Dose: 5 ml Metoclopramide HCl (Reglan Injection -) 10 mg IVPUSH Q6H PRN PRN Reason: NAUSEA AND/OR VOMITING Last Admin: 06/04/17 05:02 Dose: 10 mg Nystatin (Nystatin Oral Suspension -) 500,000 units PO Q6HPO [facility] Last Admin: 06/05/17 11:41 Dose: 500,000 units Ranitidine HCl (Zantac Oral Solution -) 300 mg PO DAILY [facility] Last Admin: 06/05/17 09:03 Dose: 300 mg Senna (Senna -) 1 tab PO DAILY [facility] Last Admin: 06/05/17 09:02 Dose: Not Given Silver Sulfadiazine (Silvadene -) 1 applic TP DAILY [facility] Last Admin: 06/05/17 09:03 Dose: 1 applic - Objective Vital Signs: Vital Signs Temperature 99 F 06/05/17 10:00 Pulse Rate 105 H 06/05/17 10:00 Respiratory Rate 18 06/05/17 10:00 Blood Pressure 130/70 06/05/17 10:00 O2 Sat by Pulse Oximetry (%) 97 06/05/17 09:00 Constitutional: Yes: Well Nourished, No Distress, Calm Eyes: Yes: WNL, Conjunctiva Clear, EOM Intact HENT: Yes: Drooling, Thrush, Other (tongue s/p resection) Neck: Yes: WNL, Supple, Trachea Midline Cardiovascular: Yes: Tachycardia, S1, S2, Other (sinus rhythm) Respiratory: Yes: WNL, Regular, CTA Bilaterally Gastrointestinal: Yes: WNL, Normal Bowel Sounds, Soft Musculoskeletal: Yes: WNL Extremities: Yes: WNL Peripheral Pulses WNL: Yes Peripheral Pulses: Left Radial: 2+, Right Radial: 2+, Left Doralis Pedis: 2+, Right Dorsalis Pedis: 2+ Edema: No Integumentary: Yes: WNL Neurological: Yes: WNL, Alert, Oriented ...Motor Strength: Yes: WNL Psychiatric: Yes: WNL, Alert, Oriented Labs Lab Results: CBC, BMP 06/05/17 06:30 06/05/17 06:30 Imaging - Results Chest X-ray: Report Reviewed, Image Reviewed Problem List - Problems (1) Fever Code(s): R50.9 - FEVER, UNSPECIFIED (2) Mucositis Code(s): K12.30 - ORAL MUCOSITIS (ULCERATIVE), UNSPECIFIED (3) Sepsis Code(s): A41.9 - SEPSIS, UNSPECIFIED ORGANISM Qualifiers: Sepsis type: sepsis due to unspecified organism Qualified Code(s): A41.9 - Sepsis, unspecified organism (4) Thrush Code(s): B37.0 - CANDIDAL STOMATITIS (5) Tongue cancer Code(s): C02.9 - MALIGNANT NEOPLASM OF TONGUE, UNSPECIFIED Assessment/Plan Patient is a 56y/o male with a PMHx of squamous cell carcinoma of the tongue, diverticulitis was admitted after having several fevers days after his last chemotherapy treatment and found with a fever of 102.8 in the ED. Sepsis 2/2 to oral cavity infection -Temp 102.8 on admission, has since remained afebrile -WBC 2.6 on admission, improved to 2.9 -Flu swab negative -Blood cultures negative -Urine cultures negative -Magic Mouth Wash -nystatin 500,000 q6h -Unasyn day 2, Diflucan day [address] Mendiola, to be switched to oral Augmentin and oral Diflucan -IV Tylenol prn fever Tongue squamous Carcinoma -pain control with fentanyl patch 25 x2 q3d, gabapentin -nystatin PO wash -self suction -plan to be discussed with patient's oncologist Dr. Palafox on treatment Elevated blood sugars -ISS F/E/N -NS 100cc/hr -Mg 1.6, repleted -Phos 2.3, repleted -elevated BUN resolved with hydration -bowel regimen Colace and senna DVT PPx -SCDs Dispositon -admitted to telemetry
[2017-06-05] MEDS: FLUCONAZOLE 100 MG/NS 50 ML IVPB SCH (14:49)
--- NOTE | 2017-06-05 15:22 | PN ---
Physical Exam: SUBJECTIVE: Patient seen and examined in this morning. Mouth pain improved, no fever, chills, CP, abdominal pain. OBJECTIVE: Vital Signs Period Temp Pulse Resp BP Sys/Parkinson Pulse Ox Last 24 Hr 99 F-100 F 97-105 18-20 130-144/68-83 97-98 General: sitting in bed, nad HEENT: s/p tongue resection, +thrush, external radiation erythema Chest: CTAB Abd: soft, NTND, +bowel sounds Ext: no edema CBC, BMP 06/05/17 06:30 06/05/17 06:30 Hepatic Panel Total Bilirubin 0.6 mg/dL (0.2-1.0) D 06/05/17 06:30 AST 11 U/L (15-37) L D 06/05/17 06:30 ALT 13 U/L (12-78) 06/05/17 06:30 Alkaline Phosphatase 55 U/L (45-117) 06/05/17 06:30 Albumin 2.5 g/dl (3.4-5.0) L 06/05/17 06:30 Microbiology 06/04/17 04:50 Urine - Urine Clean Catch Urine Culture - Final NO GROWTH OBTAINED 06/03/17 20:46 Blood - Peripheral Venous Blood Culture - Preliminary NO GROWTH OBTAINED AFTER 24 HOURS, INCUBATION TO CONTINUE FOR 4 DAYS. 06/03/17 20:46 Blood - Peripheral Venous Blood Culture - Preliminary NO GROWTH OBTAINED AFTER 24 HOURS, INCUBATION TO CONTINUE FOR 4 DAYS. 06/04/17 18:10 Nasopharyngeal Swab Influenza Types A,B Antigen (ALLEN) - Final 06/04/17 18:10 Nasopharyngeal Swab - Final Active Medications Acetaminophen (Ofirmev Injection -) 1,000 mg IVPB Q6H PRN PRN Reason: FEVER Last Admin: 06/04/17 20:20 Dose: 1,000 mg Docusate Sodium (Colace Liquid -) 100 mg PO DAILY [facility] Last Admin: 06/05/17 09:02 Dose: Not Given Fentanyl (Duragesic 50mcg Patch -) 1 patch TD Q72H [facility] Gabapentin (Neurontin -) 300 mg PO TID [facility] Last Admin: 06/05/17 13:13 Dose: 300 mg Guaifenesin (Mucinex -) 600 mg PO DAILY [facility] Last Admin: 06/05/17 09:02 Dose: 600 mg Sodium Chloride (Normal Saline -) 1,000 mls @ 100 mls/hr IV ASDIR [facility] Last Admin: 06/05/17 13:17 Dose: 100 mls/hr Ampicillin Sodium/Sulbactam (Sodium 3 gm/ Sodium Chloride) 100 mls @ 200 mls/ hr IVPB Q6H-IV [facility] Last Admin: 06/05/17 14:43 Dose: 200 mls/hr Fluconazole (Diflucan 100 Mg/Ns Premixed Ivpb -) 50 mls @ 50 mls/hr IVPB DAILY [facility] Last Admin: 06/05/17 14:49 Dose: 50 mls/hr Insulin Aspart (Novolog Vial Sliding Scale -) 1 vial SQ TIDAC [facility] PRN Reason: Protocol Last Admin: 06/05/17 11:39 Dose: 1 units Lidocaine/Aluminum/Magnesium/Simeth (Magic Mouthwash *Sjr Formula* -) 5 ml MM Q6HPO [facility] Last Admin: 06/05/17 11:40 Dose: 5 ml Metoclopramide HCl (Reglan Injection -) 10 mg IVPUSH Q6H PRN PRN Reason: NAUSEA AND/OR VOMITING Last Admin: 06/04/17 05:02 Dose: 10 mg Nystatin (Nystatin Oral Suspension -) 500,000 units PO Q6HPO [facility] Last Admin: 06/05/17 11:41 Dose: 500,000 units Ranitidine HCl (Zantac Oral Solution -) 300 mg PO DAILY [facility] Last Admin: 06/05/17 09:03 Dose: 300 mg Senna (Senna -) 1 tab PO DAILY [facility] Last Admin: 06/05/17 09:02 Dose: Not Given Silver Sulfadiazine (Silvadene -) 1 applic TP DAILY [facility] Last Admin: 06/05/17 09:03 Dose: 1 applic ASSESSMENT/PLAN: 56yo man with PMH of tongue squamous cell Ca (s/p 2x resections) and current chemoRT (cisplatin) who p/w subjective fever and found to be have Tmax 102.8. #Fevers, possibly 2/2 thrush vs radiation mucositis -ID consulted, started on Unasyn, Day 2 -c/w home Diflucan, Nystatin, Magic mouthwash (pt has been on this for past 3- 4weeks) -Blood cultures [id number] #tongue squamous cell carcinoma s/p 2x resection -Dilaudid 5mg/5cc cup Q6H PRN for pain (home oxycodone lq not on formulary) -Gabapentin 300mg PO TID for pain -Colace + Senna for bowel regimen #FEN NS@50cc Mg and Phosphate repleted Soft diet + glucerna vanilla #PPX -SCDs -c/w home Zantac #DISPO: tele, will observe for another 24H FULL code Visit type - Emergency Visit Emergency Visit: No - New Patient This patient is new to me today: Yes Date on this admission: 06/05/17 - Critical Care Critical Care patient: No
[2017-06-05] MEDS ORDERED: SODIUM CHLORIDE 1,000 ML IV SCH (16:11)
[2017-06-05] MEDS: HYDROmorphone HCL 5 MG/5 ML CUP PO PRN (19:42)
--- NOTE | 2017-06-05 22:31 | PN ---
Progress Note (short form) - Note Progress Note: Patient seen and examined vitals/meds/labs reviewed 56 y/o male on concurrent chemo RT for his h/n cancer, at [facility] mild leukopenia on diflucan for thrush on augmentin pain control supportive care
[2017-06-06] MEDS: NYSTATIN 500,000 UNITS/5 ML SUSPENSION PO SCH ×2 (00:07→05:49)
[2017-06-06] MEDS ORDERED: PT OWN MED DRAWER 7, Y5N ONE (02:00)
[2017-06-06] MEDS: MAG HYDROX/ALH/SMC/DPHA/LIDO 240 ML MOUTHWASH MM SCH ×3 (02:22→09:46)
[2017-06-06] MEDS: AMPICILLIN NA/SULBACTAM NA 3 GM in SODIUM CHLORIDE 100 ML IVPB SCH ×2 (02:23→09:45)
[2017-06-06] MEDS: GABAPENTIN 300 MG CAPSULE (FP) PO SCH (05:49)
[2017-06-06] MEDS: HYDROmorphone HCL 5 MG/5 ML CUP PO PRN (05:49)
[2017-06-06] MEDS: INSULIN SLIDING SCALE (NOVOLOG) 1 VIAL SQ SCH (06:01)
[2017-06-06 07:01] LABS: BASO % 0.2 % (0-2.0); EOS % 1.4 % (0-4.5); HEMATOCRIT 28.9 % (35.4-49); HEMOGLOBIN 10.5 GM/dL (11.7-16.9); LYMPH % 8.1 % (8-40); MCH 33.9 pg (25.7-33.7); MCHC 36.2 g/dl (32.0-35.9); MEAN CELL VOLUME 93.7 fl (80-96); MEAN PLT VOLUME 7.5 fl (7.5-11.1); MONO % 11.5 % (3.8-10.2); NEUT % 78.8 % (42.8-82.8); PLATELET COUNT 189 K/MM3 (134-434); RBC 3.08 M/mm3 (4.00-5.60); RDW 12.4 % (11.9-15.9); WHITE BLOOD COUNT 4.7 K/mm3 (4.0-10.0)
[2017-06-06 07:18] LABS: ANION GAP 13 (8-16); BLOOD UREA NITROGEN 9 mg/dL (7-18); CALCIUM 8.1 mg/dL (8.5-10.1); CHLORIDE 101 mmol/L (98-107); CO2 22 mmol/L (21-32); CREATININE 0.7 mg/dL (0.7-1.3); GLUCOSE,RANDOM 156 mg/dL (74-106); MAGNESIUM 1.9 mg/dL (1.8-2.4); PHOSPHOROUS 2.6 mg/dL (2.5-4.9); POTASSIUM 3.6 mmol/L (3.5-5.1); SODIUM 136 mmol/L (136-145)
[2017-06-06 08:56] VITALS: BP 117/67; PULSE 119; TEMP 99.8
[2017-06-06] MEDS: RANITIDINE HCL 150 MG/10 ML UNIT-DOSE PO SCH (09:47)
[2017-06-06] MEDS: DOCUSATE NA 100 MG/10 ML UNIT-DOSE CUPS PO SCH (09:47)
[2017-06-06] MEDS: guaiFENesin 600 MG TABLET.ER (FP) PO SCH (09:48)
[2017-06-06] MEDS: FLUCONAZOLE 100 MG/NS 50 ML IVPB SCH (09:48)
[2017-06-06] MEDS: SENNOSIDES 8.6MG TABLET (FP) PO SCH (09:48)
[2017-06-06] MEDS: SILVER SULFADIAZINE 1% TOP CREAM 50 GM JAR TP SCH (09:48)
[2017-06-06] MEDS ORDERED: fentaNYL 50mcg/hr PATCH.TD72 TD SCH (10:00)
--- NOTE | 2017-06-06 10:19 | DS ---
Physical Exam: SUBJECTIVE: Patient seen and examined. No events overnight. Denies fevers, chills, nausea, vomiting, CP, abdominal pain. OBJECTIVE: Vital Signs Period Temp Pulse Resp BP Sys/Parkinson Pulse Ox Last 24 Hr 98.8 F-100 F 101-119 16-20 117-144/67-89 95 PHYSICAL EXAM GENERAL: aaox3, sitting in chair, nad The patient is awake, alert, and fully oriented, in no acute distress. HEAD: Normal with no signs of trauma. EYES: PERRL, extraocular movements intact, sclera anicteric, conjunctiva clear. ENT: Ears normal, nares patent, oropharynx clear without exudates, moist mucous membranes. NECK: Trachea midline, full range of motion, supple. LUNGS: Breath sounds equal, clear to auscultation bilaterally, no wheezes, no crackles, no accessory muscle use. HEART: Regular rate and rhythm, S1, S2 without murmur, rub or gallop. ABDOMEN: Soft, nontender, nondistended, normoactive bowel sounds, no guarding, no rebound, no hepatosplenomegaly, no masses. EXTREMITIES: 2+ pulses, warm, well-perfused, no edema. NEUROLOGICAL: Cranial nerves II through XII grossly intact. Normal speech, gait not observed. PSYCH: Normal mood, normal affect. SKIN: Warm, dry, normal turgor, no rashes or lesions noted. LABS Laboratory Results - last 24 hr 06/05/17 06/05/17 06/06/17 11:37 17:22 05:59 WBC RBC Hgb Hct MCV MCH MCHC RDW Plt Count MPV Neutrophils % Lymphocytes % Monocytes % Eosinophils % Basophils % Sodium Potassium Chloride Carbon Dioxide Anion Gap BUN Creatinine POC Glucometer 194 148 175 Random Glucose Calcium Phosphorus Magnesium 06/06/17 06/06/17 06:30 06:30 WBC 4.7 D RBC 3.08 L Hgb 10.5 L D Hct 28.9 L MCV 93.7 MCH 33.9 H MCHC 36.2 H RDW 12.4 Plt Count 189 D MPV 7.5 Neutrophils % 78.8 Lymphocytes % 8.1 D Monocytes % 11.5 H Eosinophils % 1.4 Basophils % 0.2 Sodium 136 Potassium 3.6 Chloride 101 Carbon Dioxide 22 Anion Gap 13 BUN 9 Creatinine 0.7 POC Glucometer Random Glucose 156 H Calcium 8.1 L Phosphorus 2.6 Magnesium 1.9 HOSPITAL COURSE: Date of Admission:06/04/17 Date of Discharge: 06/06/17 Discharge Summary Reason For Visit: SEPSIS Current Active Problems Fever (Acute) Mucositis (Acute) Sepsis (Acute) Thrush (Acute) Tongue cancer (Acute) Condition: Stable - Instructions Diet, Activity, Other Instructions: You were admitted to the hospital for fevers. Your blood and urine cultures were negative. You were started on a short course of antibiotics. -You may resume your regular daily diet and activities. Medications: -Continue taking your home medications as prescribed, including your Diflucan and Nystatin. -Take Augmentin 5cc (= 400mg) twice per day for 7 days. Your first dose will be tomorrow morning. Your last dose will be in the evening of 06/13. -A prescription for Magic Mouthwash was sent to your pharmacy. You can use 5mL every 4hours as needed for your mouth pain Follow-ups: -Your last low grade fever was yesterday (100F). You must tell your Radiation Oncologist about this before your session today. -Please see your Medical oncologist and Radiation Oncologist as arranged for your chemotherapy and radiation therapy appointments. Please return to the Emergency Department if you have any new, worsening, or concerning. Referrals: Roderick Palafox MD [Non Staff, Medical] - Disposition: HOME - Home Medications Comprehensive Discharge Medication List: Ambulatory Orders Docusate Sodium [Colace] 100 mg PO DAILY 06/03/17 Gabapentin 300 mg PO TID 06/03/17 Guaifenesin [Mucinex] 600 mg PO DAILY 06/03/17 Ranitidine HCl [Zantac] 300 mg PO DAILY 06/03/17 Sennosides [Senna] 8.6 mg PO DAILY 06/03/17 FENTANYL 25mcg PATCH [DURAGESIC 25mcg PATCH -] 2 each TD Q72H 06/04/17 Oxycodone HCl 10 mg PO Q4H 06/04/17 Amox-Tr/K Cl [Augmentin 400 mg/5 ml Oral Suspension -] 5 ml PO BID #70 ml Fluconazole [Diflucan] 100 mg PO DAILY 06/06/17 Mag Hydrox/Alh/Smc/Dpha/Lido [Magic Mouthwash *Sjr Formula* -] 5 ml MM Q4HPO #1 bottle 06/06/17 Nystatin Oral Suspension - [Nystatin Oral Susp 911850 Units/5 ML -] 500,000 units PO QID 06/06/17
--- NOTE | 2017-06-06 13:28 | PN ---
Teaching Attending Note Name of Resident: Sydney Elaine ATTENDING PHYSICIAN STATEMENT I saw and evaluated the patient. I reviewed the resident's note and discussed the case with the resident. I agree with the resident's findings and plan as documented. SUBJECTIVE:pain is controlled with oral suspension. eager to leave to make oncology appt today. denies Cp, SOB, fever, chills, N/V/C/D OBJECTIVE: Last Vital Signs Temp Pulse Resp BP Pulse Ox 99.8 F H 119 H 16 117/67 96 06/06/17 08:56 06/06/17 08:56 06/06/17 08:56 06/06/17 08:56 06/06/17 08:00 General NAD HEENT +oral plaques on tongue, radiation aranda to neck, non tender CV S1 S2 tachy Lungs CTA B/L no wheezing/rales/rhonchi ASSESSMENT AND PLAN: 56 yo M with 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 1. fever- suspected thrush vs bacterial infection due to radiation mucositis- clinically improved. afebrile >24H, leukocytosis normal. unasyn switched to augmentin. continue with diflucan and nystatin. will f/u with oncology today for further management.
--- NOTE | 2017-06-06 15:37 | DS ---
Physical Exam: SUBJECTIVE: Patient seen and examined OBJECTIVE: Vital Signs Period Temp Pulse Resp BP Sys/Parkinson Pulse Ox Last 24 Hr 98.8 F-99.9 F 101-119 16-20 117-143/67-89 95-96 PHYSICAL EXAM GENERAL: The patient is awake, alert, and fully oriented, in no acute distress. HEAD: Normal with no signs of trauma. EYES: PERRL, extraocular movements intact, sclera anicteric, conjunctiva clear. ENT: Ears normal, nares patent, oropharynx clear without exudates, moist mucous membranes. NECK: Trachea midline, full range of motion, supple. LUNGS: Breath sounds equal, clear to auscultation bilaterally, no wheezes, no crackles, no accessory muscle use. HEART: Regular rate and rhythm, S1, S2 without murmur, rub or gallop. ABDOMEN: Soft, nontender, nondistended, normoactive bowel sounds, no guarding, no rebound, no hepatosplenomegaly, no masses. EXTREMITIES: 2+ pulses, warm, well-perfused, no edema. NEUROLOGICAL: Cranial nerves II through XII grossly intact. Normal speech, gait not observed. PSYCH: Normal mood, normal affect. SKIN: Warm, dry, normal turgor, no rashes or lesions noted. LABS Laboratory Results - last 24 hr 06/05/17 06/06/17 06/06/17 17:22 05:59 06:30 WBC 4.7 D RBC 3.08 L Hgb 10.5 L D Hct 28.9 L MCV 93.7 MCH 33.9 H MCHC 36.2 H RDW 12.4 Plt Count 189 D MPV 7.5 Neutrophils % 78.8 Lymphocytes % 8.1 D Monocytes % 11.5 H Eosinophils % 1.4 Basophils % 0.2 Sodium Potassium Chloride Carbon Dioxide Anion Gap BUN Creatinine POC Glucometer 148 175 Random Glucose Calcium Phosphorus Magnesium 06/06/17 06:30 WBC RBC Hgb Hct MCV MCH MCHC RDW Plt Count MPV Neutrophils % Lymphocytes % Monocytes % Eosinophils % Basophils % Sodium 136 Potassium 3.6 Chloride 101 Carbon Dioxide 22 Anion Gap 13 BUN 9 Creatinine 0.7 POC Glucometer Random Glucose 156 H Calcium 8.1 L Phosphorus 2.6 Magnesium 1.9 HOSPITAL COURSE: Date of Admission:06/04/17 Date of Discharge: 06/06/17 Discharge Summary Reason For Visit: SEPSIS Condition: Stable - Instructions Diet, Activity, Other Instructions: You were admitted to the hospital for fevers. Your blood and urine cultures were negative. You were started on a short course of antibiotics. -You may resume your regular daily diet and activities. Medications: -Continue taking your home medications as prescribed, including your Diflucan and Nystatin. -Take Augmentin 5cc (= 400mg) twice per day for 7 days. Your first dose will be tomorrow morning. Your last dose will be in the evening of 06/13. -A prescription for Magic Mouthwash was sent to your pharmacy. You can use 5mL every 4hours as needed for your mouth pain Follow-ups: -Your last low grade fever was yesterday (100F). You must tell your Radiation Oncologist about this before your session today. -Please see your Medical oncologist and Radiation Oncologist as arranged for your chemotherapy and radiation therapy appointments. Please return to the Emergency Department if you have any new, worsening, or concerning. Referrals: Roderick Palafox MD [Non Staff, Medical] - Disposition: HOME - Home Medications Comprehensive Discharge Medication List: Ambulatory Orders Docusate Sodium [Colace] 100 mg PO DAILY 06/03/17 Gabapentin 300 mg PO TID 06/03/17 Guaifenesin [Mucinex] 600 mg PO DAILY 06/03/17 Ranitidine HCl [Zantac] 300 mg PO DAILY 06/03/17 Sennosides [Senna] 8.6 mg PO DAILY 06/03/17 FENTANYL 25mcg PATCH [DURAGESIC 25mcg PATCH -] 2 each TD Q72H 06/04/17 Oxycodone HCl 10 mg PO Q4H 06/04/17 Amox-Tr/K Cl [Augmentin 400 mg/5 ml Oral Suspension -] 5 ml PO BID #70 ml Fluconazole [Diflucan] 100 mg PO DAILY 06/06/17 Mag Hydrox/Alh/Smc/Dpha/Lido [Magic Mouthwash *Sjr Formula* -] 5 ml MM Q4HPO #1 bottle 06/06/17 Nystatin Oral Suspension - [Nystatin Oral Susp [id number] Units/5 ML -] 500,000 units PO QID 06/06/17
== END 2017-06-06 10:27 | disposition home or self-care (01) | DRG 872 ==
LOC: JER 20:09 → JERBED 06-04 00:34 → J4W 06-04 02:41
PROVIDERS: ADMIT Internal Medicine; ATTEND Internal Medicine
DX: A41.9 Sepsis, unspecified organism (principal); K57.32 Diverticulitis of large intestine without perforation or abscess without bleeding; E87.1 Hypo-osmolality and hyponatremia; B37.0 Candidal stomatitis; C02.9 Malignant neoplasm of tongue, unspecified; D72.819 Decreased white blood cell count, unspecified; K12.30 Oral mucositis (ulcerative), unspecified; D64.9 Anemia, unspecified; E83.42 Hypomagnesemia; E83.39 Other disorders of phosphorus metabolism
CPT/HCPCS: 36415; 71045-TC-FY; 80048; 80053; 81003; 82550; 82803; 82962; 83605; 83735; 84100; 84484; 85025; 85610; 85730; 87040; 87086; 87804; 93005; 93010; 99283-25; J0131; J7030